=== PATIENT | male | born 1970 | race Caucasian/White ===

== ENCOUNTER 2018-03-15 14:47 | Emergency (ER) | payer OTHER ==
[~2018-03-15] VITALS: Ht 185.4 cm; Wt 163.3 kg
[~2018-03-15 14:47] MED LIST: HYZAAR 100-121 UDTAB
== END 2018-03-15 20:13 | disposition home or self-care (01) ==
LOC: ER 14:47
DX: N20.0 Calculus of kidney (principal)

== ENCOUNTER 2019-04-30 13:01 | Outpatient (CLI) | payer OTHER | END 2019-04-30 16:02 | disposition home or self-care (01) | LOC: SONOGRAMA 13:01 | DX: M12.861 Other specific arthropathies, not elsewhere classified, right knee (principal); M12.862 Other specific arthropathies, not elsewhere classified, left knee; M25.562 Pain in left knee; M25.561 Pain in right knee ==

== ENCOUNTER 2020-02-15 11:38 | Emergency (ER) | payer OTHER ==
[~2020-02-15] VITALS: Ht 185.4 cm; Wt 163.3 kg
[2020-02-15] MEDS ORDERED: GLIMEPIRIDE4 MG (11:48)
[2020-02-15] MEDS ORDERED: JANUVIA25 MG (11:48)
[2020-02-15] MEDS ORDERED: KETO10TA2 PO (16:50)
[2020-02-15] MEDS ORDERED: TAMS0.4C PO (16:50)
[2020-02-15] MEDS ORDERED: DICY20TA PO (16:58)
== END 2020-02-15 17:20 | disposition home or self-care (01) ==
LOC: ER 11:38
DX: N20.1 Calculus of ureter (principal); M54.5 Low back pain